=== PATIENT | female | born 1990 | race Caucasian/White ===

== ENCOUNTER → 2017-10-08 16:41 | Outpatient (CLI) | payer MEDICAID ==
[~2017-10-08 16:41] MED LIST: COUMADIN10 MG PO; DIABETA2.5 MG; DIABETA5 MG; LOVENOX INJ100 MG/ML SQ; MOTRIN600 MG OR; PERCOCET 5/3251 TA1 PO; ZANTAC15 MG/ML PO
== END | disposition home or self-care (01) ==
LOC: D.US 16:41
DX: I82.431 Acute embolism and thrombosis of right popliteal vein (principal)

== ENCOUNTER → 2017-10-18 13:10 | Outpatient (CLI) | payer MEDICAID ==
--- NOTE | ~2017-10-18 | EC ---
PATIENT:ANNIA RICHARDS DATE OF SERVICE: 10/18/17 SEX: F MEDICAL RECORD: [id number] DATE OF : [birth year] LOCATION:[facility] AGE OF PATIENT: 26 ADMISSION DATE: 10/18/17 REFERRING PHYSICIAN: INTERPRETING PHYSICIAN: MANISH BRONSON MD ECHOCARDIOGRAM REPORT ECHO CHARGES 4 ECHO COMPLETE Date: CLINICAL DIAGNOSIS: ACUTE EMOBLISM OF THE RIGHT POPLIETAL VEIN ECHOCARDIOGRAPHIC MEASUREMENTS (adult normal given) AC root (d.<3.7cm) 3.4 cm LV Septum d (<1.2 cm> 1.3 cm Valve Excursion 1.8 cm LV Septum (systole) 1.5 cm Left Atria (s.<4.0cm> 3.9 cm LVPW d(<1.2cm) 1.6 cm RV (d.<2.3cm) 3.6 cm LVPW (sytole) 1.7 cm LV diastole(<5.6CM) 4.1 cm MV E-F(>70mm/sec) cm LV systole 2.6 cm LVOT Diameter 2.1 cm MV exc.(>10mm) 2.2 cm Est.ejection fraction (50-75%) % DOPPLER: LVIT cm/sec A 77.0 cm/sec E 50.0 cm/sec LA cm/sec RVSP 14 mmHg LVOT 82 cm/sec AOP1/2T m/s Asc. Ao 111 cm/sec RVOT 81 cm/sec RA cm/sec PA 87 cm/sec AV Gradient Peak 4.94 mmHg AV Mean 2.39 mmHg AV Area 2.4 cm MV Gradient Peak 2.99 mmHg MV Mean 1.29 mmHg MV Area cm COMMENTS: S Iron Worker: Beau HERNDON [employer] Vice President [employer]: Kimberley Bronson TAPE# PACS Pericardial Effusion N DATE OF SERVICE: 10/18/2017 PROCEDURE: Transthoracic echocardiogram. FINDINGS: 1. Left ventricle: Normal size, normal function. Ejection fraction is 65%. 2. The left atrium is normal size, normal function. 3. Aortic valve is normal structurally and functionally. 4. Mitral valve is normal structurally and functionally. 5. The tricuspid valve is normal. RVSP is normal. ECHOCARDIOGRAM REPORT [id number] ANNIA RICHARDS 6. The right ventricle is mildly dilated. 7. The right atrium is mildly dilated. 8. There is no pericardial effusion. CONCLUSIONS: Normal echocardiogram with the exception that she has mild dilatation of the right-sided structures also showing inflow characteristics consistent with diastolic dysfunction. TRANSINT:[id number] Voice Confirmation ID: [id number] DOCUMENT ID: [id number] MANISH BRONSON MD at 1426 CC: [id number] DICTATION DATE: 10/23/17728 MOLD WASHER: 10/23/17 0839 [facility] CLI 10/18/[address] [id number]
== END | disposition home or self-care (01) ==
LOC: D.ECHO 13:10
DX: I82.431 Acute embolism and thrombosis of right popliteal vein (principal)

== ENCOUNTER → 2017-11-07 19:17 | Outpatient (CLI) | payer MEDICAID ==
[2017-11-07 21:10] LABS: T4 THYROXINE 7.4 ug/dL (4.7-13.3); THYROID STIMULATING HORMONE 0.68 uIU/mL (0.36-3.74)
== END | disposition home or self-care (01) ==
LOC: D.LABREF 19:17
PROVIDERS: Internal Medicine Cardiovascular Disease
DX: R00.0 Tachycardia, unspecified (principal)

== ENCOUNTER → 2017-11-08 09:59 | Outpatient (CLI) | payer MEDICAID | END | disposition home or self-care (01) | LOC: D.US 09:59 | DX: Z86.718 Personal history of other venous thrombosis and embolism (principal); R07.9 Chest pain, unspecified; R06.00 Dyspnea, unspecified; R40.0 Somnolence; R00.0 Tachycardia, unspecified ==

== ENCOUNTER → 2018-04-16 14:57 | Outpatient (CLI) | payer MEDICAID | END | disposition home or self-care (01) | LOC: D.US 14:57 | DX: I82.431 Acute embolism and thrombosis of right popliteal vein (principal) ==

== ENCOUNTER → 2018-05-06 10:01 | Outpatient (CLI) | payer MEDICAID ==
[2018-05-06 10:41] LABS: INR 0.95 (0.85-1.17); PROTIME 12.3 SECONDS (11.6-15.0)
== END | disposition home or self-care (01) ==
LOC: D.LAB 10:01
PROVIDERS: Internal Medicine Hematology & Oncology
DX: I82.431 Acute embolism and thrombosis of right popliteal vein (principal)